=== PATIENT | male | born 1955 | race Caucasian/White ===

== ENCOUNTER 2019-02-15 23:29 | Inpatient (IN) | payer SELFPAY ==
[~2019-02-15] VITALS: Ht 180.3 cm; Wt 67.4 kg
[2019-02-15 23:56] LABS: BASO # 0.1 x10^3/uL (0.0-0.2); BASO % 1 % (0-3); EOS # 0.1 x10^3/uL (0.0-0.7); EOS % 2 % (0-3); HEMATOCRIT 40.1 % (39.0-53.0); HEMOGLOBIN 14.1 g/dL (13.0-17.5); LYMPH # 2.4 x10^3/uL (1.0-4.8); LYMPH % 34 % (24-48); MEAN CORPUSCULAR HEMOGLOBIN 35 pg (25-35); MEAN CORPUSCULAR HGB CONC 35 g/dL (31-37); MEAN CORPUSCULAR VOLUME 100 fL (79-100); MONO # 0.8 x10^3/uL (0.0-1.1); MONO % 12 % (0-9); NEUT # 3.7 x10^3/uL (1.8-7.7); NEUT % 52 % (31-73); PLATELET COUNT 167 x10^3/uL (140-400); RED BLOOD COUNT 4.01 x10^6/uL (4.30-5.70); RED CELL DISTRIBUTION WIDTH 14.9 % (11.5-14.5); WHITE BLOOD COUNT 7.1 x10^3/uL (4.0-11.0)
[2019-02-15 23:59] LABS: BILIRUBIN,URINE NEGATIVE (NEG); CLARITY,URINE CLEAR; COLOR,URINE YELLOW; NITRITE,URINE NEGATIVE (NEG); PROTEIN,URINE NEGATIVE (NEG-TRACE); UROBILINOGEN,URINE 0.2 mg/dL (0.2 mg/dL)
[2019-02-16] MEDS ORDERED: ASPIRIN 325 MG TABLET PO ONE
[2019-02-16 00:04] LABS: CALCIUM 8.7 mg/dL (8.5-10.1); CREATININE 0.7 mg/dL (0.7-1.3); GFR 113.9; POTASSIUM 4.1 mmol/L (3.5-5.1)
--- NOTE | 2019-02-16 00:06 | PHYS DOC ---
Past Medical History Past Medical History: Alcoholism, Hypertension Past Medical History Limited due to ETOH intoxication Past Surgical History Limited due to ETOH intoxication Smoking: Cigarettes Alcohol Use: Heavy Drug Use: None Social History Limited due to ETOH intoxication Adult General Chief Complaint Chief Complaint: CHEST PAIN HPI HPI 63 y/o male presents via EMS with report of chest pain x 2 days. Reports some associated shortness of breath. Denies fever/chills. Denies cough. Reports history of chronic ETOH abuse. Reports he has been drinking tonight. Reports history of severe withdrawals. Denies leg swelling or calf tenderness. Reports cardiac risk factors of hypertension, smoking, and father with AMI. HPI limited due to ETOH intoxication. Review of Systems Review of Systems Constitutional: Denies fever or chills Respiratory: Denies cough; reports shortness of breath Cardiovascular: Reports chest pain Musculoskeletal: Denies back pain or leg pain Review of symptoms limited due to ETOH intoxication Current Medications Current Medications Current Medications Medications (Trade) Dose Ordered Sig/Prem Start Time Stop Time Status Last Admin Dose Admin Aspirin (Starla Aspirin) 325 mg 1X ONCE 02/16/19 00:00 02/16/19 00:01 DC 02/16/19 00:07 325 MG Multivitamins 10 ml/Thiamine HCl 100 mg/Folic Acid 1 mg/Sodium Chloride 1,011.2 ml @ 1,000.088 mls/hr 1X ONCE 02/16/19 00:30 02/16/19 01:30 DC 02/16/19 00:07 1,000.088 MLS/HR Allergies Allergies Allergies Coded Allergies Type Severity Reaction Last Updated Verified No Known Drug Allergies 02/15/19 No Physical Exam Physical Exam Constitutional: Well developed, well nourished, ETOH on breath, non-toxic appearance HENT: Normocephalic, atraumatic, oropharynx moist, nose normal Eyes: Conjunctiva injected, no discharge, horizontal nystagmus noted Neck: Normal range of motion, no tenderness, supple, no meningeal signs Cardiovascular: Heart rate normal and regular rhythm Lungs & Thorax: Bilateral breath sounds clear to auscultation, no respiratory distress Abdomen: Soft, no tenderness Skin: Warm, dry, no erythema, no rash Extremities: No tenderness, ROM intact, no edema Neurologic: Alert and oriented X 3, intoxicated, no focal deficits noted Current Patient Data Vital Signs Vital Signs Date Time Temp Pulse Resp B/P (MAP) Pulse Ox O2 Delivery O2 Flow Rate FiO2 02/16/19 00:57 70 16 127/61 (83) 96 Room Air 02/15/19 23:33 97.5 97.5 Lab Values Laboratory Tests Test 02/15/19 23:40 02/15/19 23:50 02/16/19 02:05 White Blood Count 7.1 x10^3/uL (4.0-11.0) Red Blood Count 4.01 x10^6/uL (4.30-5.70) L Hemoglobin 14.1 g/dL (13.0-17.5) Hematocrit 40.1 % (39.0-53.0) Mean Corpuscular Volume 100 fL (79-100) Mean Corpuscular Hemoglobin 35 pg (25-35) Mean Corpuscular Hemoglobin Concent 35 g/dL (31-37) Red Cell Distribution Width 14.9 % (11.5-14.5) H Platelet Count 167 x10^3/uL (140-400) Neutrophils (%) (Auto) 52 % (31-73) Lymphocytes (%) (Auto) 34 % (24-48) Monocytes (%) (Auto) 12 % (0-9) H Eosinophils (%) (Auto) 2 % (0-3) Basophils (%) (Auto) 1 % (0-3) Neutrophils # (Auto) 3.7 x10^3/uL (1.8-7.7) Lymphocytes # (Auto) 2.4 x10^3/uL (1.0-4.8) Monocytes # (Auto) 0.8 x10^3/uL (0.0-1.1) Eosinophils # (Auto) 0.1 x10^3/uL (0.0-0.7) Basophils # (Auto) 0.1 x10^3/uL (0.0-0.2) Prothrombin Time 12.7 SEC (11.7-14.0) Prothrombin Time INR 1.0 (0.8-1.1) Activated Partial Thromboplast Time 37 SEC (24-38) Sodium Level 137 mmol/L (136-145) Potassium Level 4.1 mmol/L (3.5-5.1) Chloride Level 103 mmol/L (98-107) Carbon Dioxide Level 25 mmol/L (21-32) Anion Gap 9 (6-14) Blood Urea Nitrogen 9 mg/dL (8-26) Creatinine 0.7 mg/dL (0.7-1.3) Estimated GFR (Cockcroft-Gault) 113.9 BUN/Creatinine Ratio 13 (6-20) Glucose Level 95 mg/dL (70-99) Calcium Level 8.7 mg/dL (8.5-10.1) Magnesium Level 1.9 mg/dL (1.8-2.4) Total Bilirubin 0.3 mg/dL (0.2-1.0) Aspartate Amino Transferase (AST) 18 U/L (15-37) Alanine Aminotransferase (ALT) 13 U/L (16-63) L Alkaline Phosphatase 72 U/L (46-116) Creatine Kinase 61 U/L (39-308) Creatine Kinase MB (Mass) 0.6 ng/mL (0.0-3.6) Creatine Kinase MB Relative Index % (0-4) Troponin I Quantitative < 0.017 ng/mL (0.000-0.055) < 0.017 ng/mL (0.000-0.055) PZ-Qgn-O-Type Natriuretic Peptide 274 pg/mL (0-124) H Total Protein 6.9 g/dL (6.4-8.2) Albumin 3.3 g/dL (3.4-5.0) L Albumin/Globulin Ratio 0.9 (1.0-1.7) L Lipase 135 U/L (73-393) Ethyl Alcohol Level 264 mg/dL (0-10) H Urine Collection Type Void Urine Color Yellow Urine Clarity Clear Urine pH 6.0 Urine Specific [place] <=1.005 Urine Protein Negative mg/dL (NEG-TRACE) Urine Glucose (UA) Negative mg/dL (NEG) Urine Ketones (Stick) Negative mg/dL (NEG) Urine Blood Negative (NEG) Urine Nitrite Negative (NEG) Urine Bilirubin Negative (NEG) Urine Urobilinogen Dipstick 0.2 mg/dL (0.2 mg/dL) Urine Leukocyte Esterase Negative (NEG) Urine RBC 0 /HPF (0-2) Urine WBC 0 /HPF (0-4) Urine Squamous Epithelial Cells Occ /LPF Urine Bacteria 0 /HPF (0-FEW) Urine Opiates Screen Neg (NEG) Urine Methadone Screen Neg (NEG) Urine Barbiturates Neg (NEG) Urine Phencyclidine Screen Neg (NEG) Urine Amphetamine/Methamphetamine Neg (NEG) Urine Benzodiazepines Screen Neg (NEG) Urine Cocaine Screen Neg (NEG) Urine Cannabinoids Screen Neg (NEG) Urine Ethyl Alcohol Pos (NEG) Laboratory Tests 02/15/19 23:40 Laboratory Tests 02/15/19 23:40 EKG EKG @2331 NSR at 68bpm, NO ST elevation, QRS 92bpm, QT/QTc 380/409ms Radiology/Procedures Radiology/Procedures PROCEDURE: CHEST PA & LATERAL PA and lateral chest x-ray HISTORY: Chest pain. COMPARISON: Chest x-ray February 15, 2019. FINDINGS: Heart size normal. Mediastinal silhouette is normal. Gas lucencies adjacent of the diaphragms which all appears to conform to extensive gas filled stomach and transverse colon. No pneumothorax. No pleural effusions. No pulmonary opacities. Pectus excavatum results in mild artificial density along the heart borders. Small calcified granulomas right upper lobe. IMPRESSION: No acute process. Electronically signed by: Michael Stratton MD (02/16/2019 4:24 AM) [facility] Course & Med Decision Making Course & Med Decision Making Pertinent Labs and Imaging studies reviewed. (See chart for details) Patient with hx of chronic ETOH abuse presents with report of chest pain. Patient with significant cardiac risk factors. EKG stable. Labs obtained and posted to chart. Troponin WNL. ETOH > 260. Banana bag initiated. Symptomatic treatment provided. HEART score 4. Patient requiring admission for further evaluation and treatment. Discussed with Dr. Collier (hospitalist) who is in agreement with admit. Cardiology consult placed. CIWA protocol ordered due to concern for possible DTs. Discussed findings and plan with patient, who acknowledges understanding and agreement. Dragon Disclaimer Dragon Disclaimer This electronic medical record was generated, in whole or in part, using a voice recognition dictation system. Departure Departure Impression: Primary Impression: Chest pain, rule out acute myocardial infarction Additional Impression: Alcohol abuse Disposition: ADMITTED INPATIENT Admitting Physician: MAYELA Cross) Condition: STABLE Scripts No Active Prescriptions or Reported Meds The HEART Score for CP Pts HEART Score for Chest Pain: HEART Score for Chest Pain Response (Comments) Value History Moderately Suspicious 1 ECG Normal 0 Age >45 - < 65 1 Risk Factors >3 Risk Factors or Hx CAD 2 Troponin < Normal Limit 0 Total 4 Risk Factors: Risk Factors: DM, Current or recent (<one month) smoker, HTN, HLP, family history of CAD, obesity. Risk Scores: Score 0 - 3: 2.5% MACE over next 6 weeks - Discharge Home Score 4 - 6: 20.3% MACE over next 6 weeks - Admit for Clinical Observation Score 7 - 10: 72.7% MACE over next 6 weeks - Early Invasive Strategies Problem Qualifiers ABRAHAM DAHL DO Feb 16, 2019 00:06
[2019-02-16 00:11] LABS: BACTERIA,URINE 0 /HPF (0-FEW); RBC,URINE 0 /HPF (0-2); SQUAMOUS EPITHELIAL CELL,UR OCC /LPF; WBC,URINE 0 /HPF (0-4)
[2019-02-16 00:12] LABS: ALBUMIN 3.3 g/dL (3.4-5.0); ALBUMIN/GLOBULIN RATIO 0.9 (1.0-1.7); MAGNESIUM 1.9 mg/dL (1.8-2.4); TOTAL BILIRUBIN 0.3 mg/dL (0.2-1.0); TOTAL PROTEIN 6.9 g/dL (6.4-8.2)
[2019-02-16 00:12] LABS: BARBITURATES NEG (NEG); BENZODIAZEPINES NEG (NEG); CANNABINOIDS NEG (NEG); COCAINE NEG (NEG); METHADONE NEG (NEG); OPIATES NEG (NEG); PHENCYCLIDINE NEG (NEG)
[2019-02-16 00:13] LABS: AMPHETAMINE/METHAMPHETAMINE NEG (NEG)
[2019-02-16 00:14] LABS: PROTHROMBIN TIME PATIENT 12.7 SEC (11.7-14.0)
[2019-02-16 00:17] LABS: CREATINE KINASE 61 U/L (39-308)
[2019-02-16] MEDS ORDERED: MULTIVIT INFUSN,ADULT 4,VIT K 10 ML, THIAMINE INJ 100 MG, FOLIC ACID INJ 1 MG in IV NOR... IV ONE (00:30)
[2019-02-16] MEDS ORDERED: fentaNYL PF VIAL 100 MCG/2 ML VIAL IV PRN (02:15)
[2019-02-16] MEDS ORDERED: ONDANSETRON PF 4 MG/2 ML VIAL. IV PRN (02:15)
[2019-02-16] MEDS ORDERED: FAMOTIDINE 20 MG/2 ML VIAL IVP ONE (02:30)
[2019-02-16 02:50] VITALS: BP 136/79
--- NOTE | 2019-02-16 04:27 | RAD ---
PA and lateral chest x-ray HISTORY: Chest pain. COMPARISON: Chest x-ray February 15, 2019. FINDINGS: Heart size normal. Mediastinal silhouette is normal. Gas lucencies adjacent of the diaphragms which all appears to conform to extensive gas filled stomach and transverse colon. No pneumothorax. No pleural effusions. No pulmonary opacities. Pectus excavatum results in mild artificial density along the heart borders. Small calcified granulomas right upper lobe. IMPRESSION: No acute process. Electronically signed by: Michael Stratton MD (02/16/2019 4:24 AM) [facility]
[2019-02-16] MEDS ORDERED: HALOPERIDOL LACTATE 5 MG/ML VIAL. IVP PRN (05:30)
[2019-02-16] MEDS ORDERED: NICOTINE 21MG PATCH. TD ONE (06:00)
--- NOTE | 2019-02-16 07:13 | EKG ---
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
[2019-02-16] MEDS ORDERED: FLU VAX QS 2019-20 (36MOS+)/PF 0.5 ML SYRINGE. VAX IM ONE (09:00)
[2019-02-16] MEDS ORDERED: MULTIVIT INFUSN,ADULT 4,VIT K 10 ML, THIAMINE INJ 100 MG, FOLIC ACID INJ 1 MG in IV NOR... IV SCH (09:00)
[2019-02-16 11:00] VITALS: BP 152/82
--- NOTE | 2019-02-16 11:09 | PDOC2 ---
CARDIAC CONSULT DATE OF CONSULT Date of Consult DATE: 02/16/19 TIME: 11:06 REASON FOR CONSULT Reason for Consult: Chest pain REFERRING PHYSICIAN Referring Physician: Kirsten SOURCE Source: Chart review, Patient HISTORY OF PRESENT ILLNESS HISTORY OF PRESENT ILLNESS This is a 63 yo male admitted for complains of chest pain. This is sharp and nonradiating. No associated vomiting, or SOA but with occasional palpitations. Denies any past hx of CAD or arrhythmias. Positive for heavy ETOH use and tobacco use as well. Consumes about 10 beers daily and no plans on quitting. He does have hx of esophgeal ulcer and possibly banding in the past. No hematemesis nor reports of black stools. He does not take any medications. PAST MEDICAL HISTORY CENTRAL NERVOUS SYSTEM: Seizure GI: Other (?varices; esophageal ulcer) Heme/Onc: No pertinent hx Hepatobiliary: Cirrhosis (?) Psych: Other (alcoholism) Musculoskeletal: Osteoarthritis PAST SURGICAL HISTORY Past Surgical History: Other (possible variceal banding) FAMILY HISTORY Family History: Coronary Artery Disease (father) SOCIAL HISTORY Smoke: <1 pack per day ALCOHOL: heavy Drugs: None Lives: Alone CURRENT MEDICATIONS CURRENT MEDICATIONS Current Medications Medications (Trade) Dose Ordered Sig/Prem Route PRN Reason Start Time Stop Time Status Last Admin Dose Admin Aspirin (Starla Aspirin) 325 mg 1X ONCE PO 02/16/19 00:00 02/16/19 00:01 DC 02/16/19 00:07 Multivitamins 10 ml/Thiamine HCl 100 mg/Folic Acid 1 mg/Sodium Chloride 1,011.2 ml @ 1,000.088 mls/hr 1X ONCE IV 02/16/19 00:30 02/16/19 01:30 DC 02/16/19 00:07 Lorazepam (Ativan Inj) 1 mg 1X ONCE IV 02/16/19 02:30 02/16/19 02:31 DC 02/16/19 02:24 Famotidine (Pepcid Vial) 20 mg 1X ONCE IVP 02/16/19 02:30 02/16/19 02:31 DC 02/16/19 02:24 Lorazepam (Ativan Inj) 1 mg PRN Q1HR PRN IV For CIWA 8-14 02/16/19 02:15 02/16/19 04:15 Lorazepam (Ativan Inj) 2 mg PRN Q1HR PRN IV For CIWA 15 or greater 02/16/19 02:15 02/16/19 05:16 Nicotine (Nicoderm Cq 21mg) 1 patch 1X ONCE TD 02/16/19 06:00 02/16/19 06:01 DC 02/16/19 05:35 Multivitamins 10 ml/Thiamine HCl 100 mg/Folic Acid 1 mg/Sodium Chloride 1,011.2 ml @ 100 mls/ hr DAILY IV 02/16/19 09:00 02/20/19 19:07 02/16/19 10:38 ALLERGIES ALLERGIES: Coded Allergies: No Known Drug Allergies (Unverified , 02/15/19) ROS Review of System 14 point ROS evaluated with pertinent positives noted per HPI PHYSICAL EXAM General: Alert, Oriented X3, Cooperative, No acute distress HEENT: Atraumatic, Mucous membr. moist/pink Lungs: Clear to auscultation, Normal air movement Heart: Regular rate (SR), Normal S1, Normal S2, No murmurs Abdomen: Soft, No tenderness Extremities: No cyanosis, No edema Skin: No breakdown, No significant lesion Neuro: Normal speech, Sensation intact Psych/Mental Status: Mental status NL, Mood NL MUSCULOSKELETAL: Osteoarthritic changes both hands VITALS/I&O VITALS/I&O: Vital Signs Date Time Temp Pulse Resp B/P (MAP) Pulse Ox O2 Delivery O2 Flow Rate FiO2 02/16/19 07:00 18 93 Room Air 02/16/19 02:50 97.9 65 136/79 (98) 97.9 I & O 02/15/19 02/15/19 02/16/19 15:00 23:00 07:00 Output Total 1500 ml Balance -1500 ml LABS Lab: Laboratory Tests Test 02/15/19 23:40 02/15/19 23:50 02/16/19 02:05 02/16/19 04:55 White Blood Count 7.1 x10^3/uL (4.0-11.0) Red Blood Count 4.01 x10^6/uL (4.30-5.70) L Hemoglobin 14.1 g/dL (13.0-17.5) Hematocrit 40.1 % (39.0-53.0) Mean Corpuscular Volume 100 fL (79-100) Mean Corpuscular Hemoglobin 35 pg (25-35) Mean Corpuscular Hemoglobin Concent 35 g/dL (31-37) Red Cell Distribution Width 14.9 % (11.5-14.5) H Platelet Count 167 x10^3/uL (140-400) Neutrophils (%) (Auto) 52 % (31-73) Lymphocytes (%) (Auto) 34 % (24-48) Monocytes (%) (Auto) 12 % (0-9) H Eosinophils (%) (Auto) 2 % (0-3) Basophils (%) (Auto) 1 % (0-3) Neutrophils # (Auto) 3.7 x10^3/uL (1.8-7.7) Lymphocytes # (Auto) 2.4 x10^3/uL (1.0-4.8) Monocytes # (Auto) 0.8 x10^3/uL (0.0-1.1) Eosinophils # (Auto) 0.1 x10^3/uL (0.0-0.7) Basophils # (Auto) 0.1 x10^3/uL (0.0-0.2) Prothrombin Time 12.7 SEC (11.7-14.0) Prothrombin Time INR 1.0 (0.8-1.1) Activated Partial Thromboplast Time 37 SEC (24-38) Sodium Level 137 mmol/L (136-145) Potassium Level 4.1 mmol/L (3.5-5.1) Chloride Level 103 mmol/L (98-107) Carbon Dioxide Level 25 mmol/L (21-32) Anion Gap 9 (6-14) Blood Urea Nitrogen 9 mg/dL (8-26) Creatinine 0.7 mg/dL (0.7-1.3) Estimated GFR (Cockcroft-Gault) 113.9 BUN/Creatinine Ratio 13 (6-20) Glucose Level 95 mg/dL (70-99) Calcium Level 8.7 mg/dL (8.5-10.1) Magnesium Level 1.9 mg/dL (1.8-2.4) Total Bilirubin 0.3 mg/dL (0.2-1.0) Aspartate Amino Transferase (AST) 18 U/L (15-37) Alanine Aminotransferase (ALT) 13 U/L (16-63) L Alkaline Phosphatase 72 U/L (46-116) Creatine Kinase 61 U/L (39-308) Creatine Kinase MB (Mass) 0.6 ng/mL (0.0-3.6) Creatine Kinase MB Relative Index % (0-4) Troponin I Quantitative < 0.017 ng/mL (0.000-0.055) < 0.017 ng/mL (0.000-0.055) < 0.017 ng/mL (0.000-0.055) YA-Avw-L-Type Natriuretic Peptide 274 pg/mL (0-124) H Total Protein 6.9 g/dL (6.4-8.2) Albumin 3.3 g/dL (3.4-5.0) L Albumin/Globulin Ratio 0.9 (1.0-1.7) L Lipase 135 U/L (73-393) Ethyl Alcohol Level 264 mg/dL (0-10) H Urine Collection Type Void Urine Color Yellow Urine Clarity Clear Urine pH 6.0 Urine Specific [place] <=1.005 Urine Protein Negative mg/dL (NEG-TRACE) Urine Glucose (UA) Negative mg/dL (NEG) Urine Ketones (Stick) Negative mg/dL (NEG) Urine Blood Negative (NEG) Urine Nitrite Negative (NEG) Urine Bilirubin Negative (NEG) Urine Urobilinogen Dipstick 0.2 mg/dL (0.2 mg/dL) Urine Leukocyte Esterase Negative (NEG) Urine RBC 0 /HPF (0-2) Urine WBC 0 /HPF (0-4) Urine Squamous Epithelial Cells Occ /LPF Urine Bacteria 0 /HPF (0-FEW) Urine Opiates Screen Neg (NEG) Urine Methadone Screen Neg (NEG) Urine Barbiturates Neg (NEG) Urine Phencyclidine Screen Neg (NEG) Urine Amphetamine/Methamphetamine Neg (NEG) Urine Benzodiazepines Screen Neg (NEG) Urine Cocaine Screen Neg (NEG) Urine Cannabinoids Screen Neg (NEG) Urine Ethyl Alcohol Pos (NEG) Laboratory Tests 02/15/19 23:40 Laboratory Tests 02/15/19 23:40 ASSESSMENT/PLAN ASSESSMENT/PLAN Atypical CP: suspect GI Heavy Alcoholism Possible hx of esophageal varices with banding Hx of esophageal ulcer Hx of seizures: unmedicated Recommendations 1. If TTE is unremarkable then may DC per cardiac standpoint 2. Will need detox, CIWA protocol per PCP 3. Smoking cessation RONNIE MENDOZA APRN Feb 16, 2019 11:09
--- NOTE | 2019-02-16 11:32 | CARD ---
MR#: [id number] Date of Study: 02/16/2019 Ordering Physician: RONNIE MENDOZA, Referring Physician: RONNIE MENDOZA Tech: Barbie Szymanski PARISA APPROVED REPORT EXAM: Two-dimensional and M-mode echocardiogram with Doppler and color Doppler. Other Information Quality : Fair INDICATION Chest Pain 2D DIMENSIONS RVDd2.7 (2.9-3.5cm)Left Atrium(2D)2.0 (1.6-4.0cm) IVSd0.8 (0.7-1.1cm)Aortic Root(2D)3.1 (2.0-3.7cm) LVDd4.8 (3.9-5.9cm)LVOT Diameter1.9 (1.8-2.4cm) PWd0.8 (0.7-1.1cm)LVDs3.1 (2.5-4.0cm) FS (%) 30.0 %SV72.5 ml LVEF(%)60.0 (>50%) Aortic Valve AoV Peak Radames.67.2cm/sAoV VTI12.9cm AO Peak GR.1.8mmHgLVOT VTI 16.20cm AO Mean GR.1mmHgAVA (VTI)3.60cm2 Mitral Valve MV E Xwpmizui25.1cm/sMV DECEL [id number] MV A Opvgkuuj85.4cm/sE/A Ratio0.9 TDI Lateral E' P. V8.82cm/sMedial E' P. V4.63cm/s E/Lateral E'5.6E/Medial E'10.6 LEFT VENTRICLE The left ventricle is normal size. There is normal left ventricular wall thickness. The left ventricu lar systolic function is normal and the ejection fraction is within normal range. The Ejection Fracti on is 55-60%. There is normal LV segmental wall motion. Transmitral Doppler flow pattern is Grade I-a bnormal relaxation pattern. RIGHT VENTRICLE The right ventricle is normal size. The right ventricular systolic function is normal. ATRIA The left atrium size is normal. The right atrium size is normal. The interatrial septum is intact wit h no evidence for an atrial septal defect or patent foramen ovale as noted on 2-D or Doppler imaging. AORTIC VALVE The aortic valve is calcified but opens well. Doppler and Color Flow revealed no significant aortic r egurgitation. There is no significant aortic valvular stenosis. MITRAL VALVE The mitral valve is calcified but opens well. There is no evidence of mitral valve prolapse. There is no mitral valve stenosis. Doppler and Color Flow revealed trace mitral valve regurgitation. TRICUSPID VALVE The tricuspid valve is normal in structure and function. Doppler and Color Flow revealed no tricuspid valve regurgitation noted. There is no tricuspid valve stenosis. PULMONIC VALVE The pulmonic valve is not well visualized. Doppler and Color Flow revealed no pulmonic valvular regur gitation. There is no pulmonic valvular stenosis. GREAT VESSELS The aortic root is normal in size. The ascending aorta is normal in size. The IVC is normal in size a nd collapses >50% with inspiration. PERICARDIAL EFFUSION There is no evidence of significant pericardial effusion. Critical Notification Critical Value: No <Conclusion> The left ventricle is normal size. The left ventricular systolic function is normal and the ejection fraction is within normal range. The Ejection Fraction is 55-60%. There is no significant aortic valvular stenosis. Doppler and Color Flow revealed no significant aortic regurgitation. Doppler and Color Flow revealed trace mitral valve regurgitation. Doppler and Color Flow revealed no tricuspid valve regurgitation noted. Signed by : Lai Yates MD Electronically Approved : 02/16/2019 11:32:13
--- NOTE | 2019-02-16 11:36 | NUR ---
SS following for discharge planning. Pt is a self pay pt. [facility] is following for self pay status. Pt is currently homeless and reports that he lives on and off with friends. SS will continue to follow for discharge planning.
--- NOTE | 2019-02-16 11:57 | HP ---
ADMIT DATE: 02/16/2019 CHIEF COMPLAINT: Chest pain and alcohol intoxication. HISTORY OF PRESENT ILLNESS: The patient is a pleasant elderly male who I believe is homeless. He presented with chest pain rated at 7/10. He has associated weakness. He is also drunk with an alcohol level of 247. We have now admitted the patient to the telemetry floor with consultation to Cardiology. PAST MEDICAL HISTORY: Hypertension, noncompliance, and alcoholism. ALLERGIES: None. FAMILY HISTORY: Coronary artery disease. SOCIAL HISTORY: He drinks and smokes. No drugs. MEDICATIONS: Reviewed, please refer to the MRAD. REVIEW OF SYSTEMS: GENERAL: No history of weight change, weakness or fevers. SKIN: No bruising, hair changes or rashes. EYES: No blurred, double or loss of vision. NOSE AND THROAT: No history of nosebleeds, hoarseness or sore throat. HEART: No history of palpitations, chest pain or shortness of breath on exertion. LUNGS: Denies cough, hemoptysis, wheezing or shortness of breath. GASTROINTESTINAL: Denies changes in appetite, nausea, vomiting, diarrhea or constipation. GENITOURINARY: No history of frequency, urgency, hesitancy or nocturia. NEUROLOGIC: Denies history of numbness, tingling, tremor or weakness. PSYCHIATRIC: No history of panic, anxiety or depression. ENDOCRINE: No history of heat or cold intolerance, polyuria or polydipsia. EXTREMITIES: Denies muscle weakness, joint pain, pain on walking or stiffness. PHYSICAL EXAMINATION: VITALS: Within normal limits and are stable. GENERAL: No apparent distress. Alert and oriented. HEENT: Head is normocephalic, atraumatic, pupils were equally round and reactive to light and accommodation. NECK: Supple, no JVD, no thyromegaly was noted. LUNGS: Clear to auscultation in all lung wilson without rhonchi or wheezing. HEART: RRR, S1, S2 present. Peripheral pulses intact, no obvious murmurs were noted. ABDOMEN: Soft, nontender. Positive bowel sounds no organomegaly, normal bowel sounds. EXTREMITIES: Without any cyanosis, clubbing, or edema. Pedal pulses intact, Homans sign is negative. NEUROLOGIC: Normal speech, normal tone. A and O x 3, moves all extremities, no obvious focal deficits. PSYCHIATRIC: Normal affect, normal mood. Stable. SKIN: No ulcerations or rashes, good skin turgor, no jaundice. VASCULAR: Good capillary refill, neurovascular bundle appears to be intact. LABORATORY DATA: Hematology is normal. Electrolytes are normal. Troponin is 0. ASSESSMENT AND PLAN: Chest pain, rule out coronary artery disease. The patient has been admitted. We will check serial enzymes, serial EKGs. Consult Cardiology, cardiac monitoring, daily aspirin. Alcohol withdrawal protocol if necessary. Physical therapy, occupational therapy. Deep venous thrombosis prophylaxis. Full code. BINA MARK DO DR: KAI/yossi JOB#: [id number] / [id number]
--- NOTE | 2019-02-16 15:30 | NUR ---
Discharge Note: NANCY VELÁZQUEZ Discharge instructions and discharge home medications reviewed with Patient and a copy given. All questions have been answered and understanding verbalized.
[2019-02-17] MEDS ORDERED: NICOTINE 21MG PATCH. TD SCH (09:00)
--- NOTE | 2019-02-23 10:43 | DS ---
DATE OF DISCHARGE: 02/16/2019 ADMISSION DIAGNOSIS: Chest pain. DISCHARGE DIAGNOSES: Atypical chest pain, alcohol intoxication, history of hypertension, noncompliance. CONSULTS: Cardiology. PROCEDURES: None. HOSPITAL COURSE: The patient is a pleasant middle-aged male, who presented drunk and had chest pain. He was admitted. We did alcohol withdrawal protocol. We did serial enzymes, serial EKGs. We consulted Cardiology. Basically, his workup was negative. He sobered up and went home. DISPOSITION: Home. ACTIVITY: As tolerated. DIET: Low sodium. MEDICATIONS: Please see the MRAD. TOTAL TIME: 32 minutes. NIAL Daphney MARK DO DR: KAI/yossi JOB#: [id number] / [id number]
== END 2019-02-16 15:20 | disposition home or self-care (01) | DRG 313 ==
LOC: ER 23:29 → 2 NORTH 02-16 02:10
PROVIDERS: ADMIT Internal Medicine; ATTEND Internal Medicine
DX: R07.89 Other chest pain (principal); F10.229 Alcohol dependence with intoxication, unspecified; F17.210 Nicotine dependence, cigarettes, uncomplicated; Y90.8 Blood alcohol level of 240 mg/100 ml or more; M19.90 Unspecified osteoarthritis, unspecified site; I10 Essential (primary) hypertension; Z91.19 Patient's noncompliance with other medical treatment and regimen; Z82.49 Family history of ischemic heart disease and other diseases of the circulatory system; Z87.19 Personal history of other diseases of the digestive system; Z59.0 Homelessness
CPT/HCPCS: 36415; 71046; 80053; 80307; 81001; 82553; 83690; 83735; 83880; 84484; 85025; 85610; 85730; 93005; 93306; 96365; 96375; G0480; J2060; J3490; J7030; 99285-25; G0378